=== PATIENT | male | born 1970 | race Two or more races ===

== ENCOUNTER 2025-06-10 23:37 | Inpatient (IN) | payer OTHER ==
[~2025-06-10] VITALS: Ht 165.1 cm; Wt 73.5 kg
[2025-06-11] VITALS (66 sets, daily range): BP systolic 74–122; BP diastolic 38–71; TEMP 96.2–98.9; O2SAT 90–98
[2025-06-11] MEDS ORDERED: MORPHINE SULFATE INJ 4 MG/ML DISP.SYRIN ONE ×2 (00:07→01:10)
[2025-06-11] MEDS ORDERED: KETOROLAC TROMETHAMINE INJ 30 MG/ML VIAL ONE (00:07)
[2025-06-11] MEDS: MORPHINE SULFATE INJ 2 MG/ML DISP.SYRIN IV ONE ×2 (00:11→01:54)
[2025-06-11] MEDS: KETOROLAC TROMETHAMINE INJ 30 MG/ML VIAL IV ONE (00:11)
[2025-06-11 00:26] LABS: PLATELET COUNT (AUTO) 448 K/uL (150-450); RED BLOOD CELL COUNT(AUTO) 4.09 MIL/uL (4.5-6.0); RED CELL DISTRIBUTION WIDTH 12.9 % (11.5-15.0); WHITE BLOOD COUNT (AUTO) 12.3 K/uL (4.3-11.0)
[2025-06-11 00:33] LABS: CALCIUM, SERUM 9.0 mg/dL (8.5-10.1); CREATININE 1.4 mg/dL (0.6-1.3); SODIUM SERUM 137 mmol/L (136-145); UREA NITROGEN, BLOOD 15 mg/dL (7-18)
[2025-06-11 00:47] LABS: NT-PRO BNP 142 pg/mL (0-125)
[2025-06-11] MEDS: IV NS 0.9% 1,000 ML BAG IV ONE (00:54)
[2025-06-11] MEDS ORDERED: NOREPINEPHRINE 8MG/250ML RTU 250 ML IV ONE (00:55)
[2025-06-11] MEDS: NOREPINEPHRINE 8 MG in IV NS 0.9% 242 ML IV PRN ×2 (01:06→09:07)
[2025-06-11] MEDS ORDERED: ONDANSETRON HCL/PF 4 MG/2 ML VIAL ONE (01:09)
[2025-06-11] MEDS: ONDANSETRON HCL/PF - ER 4 MG/2 ML VIAL IV ONE (01:54)
[2025-06-11] MEDS: INSULIN REGULAR, HUMAN 100 UNIT/ML 10 ML VIAL IV ONE (02:30)
[2025-06-11] MEDS: PANTOPRAZOLE 40 MG TABLET.DR PO ONE (02:30)
[2025-06-11] MEDS ORDERED: DEXTROSE 50%-WATER 50 ML DISP.SYRIN IV PRN ×2 (02:30→09:00)
[2025-06-11] MEDS ORDERED: ONDANSETRON HCL/PF 4 MG/2 ML VIAL IVP PRN (02:30)
[2025-06-11] MEDS ORDERED: ZOLPIDEM TARTRATE 5 MG TABLET PO PRN (02:30)
[2025-06-11] MEDS ORDERED: INSULIN REGULAR, HUMAN 100 UNIT/ML 10 ML VIAL ONE (03:41)
[2025-06-11] MEDS ORDERED: PANTOPRAZOLE 40 MG TABLET.DR PO ONE (03:41)
[2025-06-11] MEDS: NOREPINEPHRINE 8 MG in IV NS 0.9% 250 ML IV PRN (05:04)
[2025-06-11] MEDS: NOREPINEPHRINE 8MG/250ML RTU 250 ML IV ONE (05:09)
[2025-06-11 05:21] LABS: PHOSPHORUS 6.1 mg/dL (2.5-4.9); PLATELET COUNT (AUTO) 457 K/uL (150-450); RED BLOOD CELL COUNT(AUTO) 3.26 MIL/uL (4.5-6.0); RED CELL DISTRIBUTION WIDTH 12.8 % (11.5-15.0); WHITE BLOOD COUNT (AUTO) 21.6 K/uL (4.3-11.0)
[2025-06-11] MEDS: INSULIN REGULAR, HUMAN 100 UNIT/ML 3 ML VIAL SQ PRN ×2 (07:52→12:05)
[2025-06-11] MEDS: BLOOD SUGAR DIAGNOSTIC 1 EACH STRIP IN SCH ×2 (07:52→12:06)
[2025-06-11] MEDS: PANTOPRAZOLE 40 MG TABLET.DR PO SCH (07:53)
[2025-06-11] MEDS ORDERED: DOSING PER PHARMACY-VANCOMYCIN IV XX PRN (09:00)
[2025-06-11] MEDS ORDERED: METF-442 PO (09:48)
[2025-06-11] MEDS ORDERED: SIMV10TA98 PO (09:48)
[2025-06-11] MEDS ORDERED: EMPA25TA PO (09:48)
[2025-06-11] MEDS ORDERED: IV NS 0.9% 500 ML IV PRN (10:00)
[2025-06-11 10:19] LABS: INR 1.03 (0.91-1.10)
[2025-06-11] MEDS: VANCOMYCIN 1 GM in IV D5W 250ml IV ONE (10:23)
[2025-06-11] MEDS: ACETAMINOPHEN 325 MG TABLET PO PRN (11:32)
[2025-06-11] MEDS: IV NS 0.9% 1,000 ML IV PRN (11:33)
[2025-06-11] MEDS: VANCOMYCIN 750 MG in IV D5W 250 ML IV ONE (11:36)
[2025-06-11 12:21] LABS: PLATELET COUNT (AUTO) 376 K/uL (150-450); RED BLOOD CELL COUNT(AUTO) 2.50 MIL/uL (4.5-6.0); RED CELL DISTRIBUTION WIDTH 12.5 % (11.5-15.0); WHITE BLOOD COUNT (AUTO) 14.5 K/uL (4.3-11.0)
[2025-06-11] MEDS: PIPERACILLIN /TAZOBACTAM 4.5 G in IV D5W 50 ML IV ONE (12:49)
[2025-06-11 13:55] LABS: APPEARANCE,URINE CLEAR (CLEAR); BLOOD, URINE NEGATIVE Ery/uL (NEGATIVE); LEUKOCYTE ESTERASE ,URINE NEGATIVE (NEGATIVE); NITRITE, URINE NEGATIVE (NEGATIVE); UGLUCOSE 3+ mg/dL (NEGATIVE)
[2025-06-11 14:01] LABS: ADD URINE CULTURE NO; SQUAMOUS EPITHELIAL CELL,UR Few /HPF (None Seen)
[2025-06-11 14:02] LABS: CREATININE, URINE 50.7 MG/DL (30.0-125.0); URINE SODIUM, RANDOM 10.0 mmol/l (40-220); URINE TOTAL PROTEIN 7.4 mg/dL (0-11.9)
[2025-06-11] MEDS: MORPHINE SULFATE INJ 2 MG/ML DISP.SYRIN IV PRN ×2 (14:13→22:45)
[2025-06-11 14:57] LABS: EOSINOPHIL,URINE None Seen
[2025-06-11] MEDS: PIPERACILLIN /TAZOBACTAM 3.375 G in IV D5W 100 ML IV SCH (20:24)
[2025-06-11] MEDS: *INSULIN REGULAR(HUMULIN R)HUM 100 UNIT/ML VIAL SQ PRN (21:41)
[2025-06-11] MEDS: VANCOMYCIN 750 MG in IV D5W 250 ML IV SCH (22:26)
[2025-06-12] VITALS (40 sets, daily range): BP systolic 98–128; BP diastolic 53–80; TEMP 98–98.4; O2SAT 91–95
[2025-06-12 04:29] LABS: ASPARTATE AMINOTRANSFERASE 9.0 U/L (15-37); CALCIUM, SERUM 7.3 mg/dL (8.5-10.1); CREATININE 1.0 mg/dL (0.6-1.3); PHOSPHORUS 3.7 mg/dL (2.5-4.9); SODIUM SERUM 134.0 mmol/L (136-145); TOTAL PROTEIN, SERUM 4.8 g/dL (6.4-8.2); UREA NITROGEN, BLOOD 19.0 mg/dL (7-18)
[2025-06-12 04:32] LABS: PLATELET COUNT (AUTO) 219 K/uL (150-450); RED BLOOD CELL COUNT(AUTO) 2.95 MIL/uL (4.5-6.0); RED CELL DISTRIBUTION WIDTH 14.5 % (11.5-15.0); WHITE BLOOD COUNT (AUTO) 9.6 K/uL (4.3-11.0)
[2025-06-12 05:09] LABS: CREATINE KINASE, TOTAL 55.0 U/L (39-308)
[2025-06-12] MEDS: POTASSIUM CHLORIDE 20 MEQ TAB.PRT.SR PO ONE (09:32)
[2025-06-12] MEDS ORDERED: VANCOMYCIN HCL 1.25 GM in IV D5W 250 ML IV SCH (23:00)
[2025-06-13 05:10] LABS: PTH, INTACT 13 pg/mL (15-65)
== END 2025-06-12 20:01 | disposition short-term general hospital (02) | DRG 135 ==
LOC: ER 23:42 → ICU 06-11 02:14 → EDBD 06-11 02:14
PROVIDERS: ADMIT Registered Nurse Psychiatric/Mental Health; ATTEND Internal Medicine
PROC: 30233N1 Transfusion of Nonautologous Red Blood Cells into Peripheral Vein, Percutaneous Approach (ICD-10-PCS; principal; 2025-06-11)
PROC: 0W9930Z Drainage of Right Pleural Cavity with Drainage Device, Percutaneous Approach (ICD-10-PCS; 2025-06-11)
DX: S27.1XXA Traumatic hemothorax, initial encounter (principal); R57.8 Other shock; S22.41XA Multiple fractures of ribs, right side, initial encounter for closed fracture; N17.9 Acute kidney failure, unspecified; J90 Pleural effusion, not elsewhere classified; D64.9 Anemia, unspecified; E11.65 Type 2 diabetes mellitus with hyperglycemia; X58.XXXA Exposure to other specified factors, initial encounter; I10 Essential (primary) hypertension; Y92.000 Kitchen of unspecified non-institutional (private) residence as the place of occurrence of the external cause; E11.9 Type 2 diabetes mellitus without complications; S27.322A Contusion of lung, bilateral, initial encounter; W01.0XXA Fall on same level from slipping, tripping and stumbling without subsequent striking against object, initial encounter; M89.8X9 Other specified disorders of bone, unspecified site; F17.290 Nicotine dependence, other tobacco product, uncomplicated; S27.321A Contusion of lung, unilateral, initial encounter; J98.11 Atelectasis
CPT/HCPCS: 36415; 71045-TC; 71250-TC; 76770-TC; 80048-TC; 80053-TC; 80202-TC; 81001; 82550-TC; 82570-TC; 82962-TC; 83735-TC; 83880; 83970; 84100-TC; 84155; 84165; 84300-TC; 84484-TC; 85025-TC; 85027-TC; 85730-TC; 86850-TC; 87081-TC; A4223; G0378; J1815; J1885; J2270; J2405; J2543; J3373; J3374; J7030; J7040; J7050; J7060; P9016